=== PATIENT | male | born 1985 | race African-American/Black ===

== ENCOUNTER 2019-07-19 17:26 | Emergency (ER) | payer OTHER, BC ==
[2019-07-19] MEDS ORDERED: MORPHINE SULFATE 10 MG/ML INJ IM ONE (17:47)
--- NOTE | 2019-07-19 17:47 | ER Document Report ---
ED Medical Screen (RME) - General Chief Complaint: Shoulder Injury Stated Complaint: HURT SHOULDER Time Seen by Provider: 07/19/19 17:45 Primary Care Provider: GOLD STANLEY [Primary Care Provider] - Follow up as needed Mode of Arrival: Ambulatory Information source: Patient Notes: Patient is an otherwise healthy 34-year-old male presented emergency department with chief complaint of complaint of right shoulder pain. Patient reports he was reaching up for something at work when he believes he dislocated his shoulder. Patient does have a history of shoulder dislocations in the past. Strong radial pulse present. Patient taken straight to x-ray. I have greeted and performed a rapid initial assessment of this patient. A comprehensive ED assessment and evaluation of the patient, analysis of test results and completion of the medical decision making process will be conducted by additional ED providers. I have specifically instructed the patient or family members with the patient to immediately return to any nursing staff should anything change in the patient's condition or with their chief complaint. This medical record was dictated with voice recognizing software. There may be grammatical, syntax errors that are unintended. - Related Data Allergies/Adverse Reactions: No Known Allergies Allergy (Verified 07/19/19 17:40) Physical Exam - Vital signs Vitals: Temp Pulse Resp BP Pulse Ox 98.4 F 77 18 144/88 H 98 07/19/19 17:42 07/19/19 17:42 07/19/19 17:42 07/19/19 17:42 07/19/19 17:42 Course - Vital Signs Vital signs: Temp Pulse Resp BP Pulse Ox 98.4 F 77 18 144/88 H 98 07/19/19 17:42 07/19/19 17:42 07/19/19 17:42 07/19/19 17:42 07/19/19 17:42 Doctor's Discharge - Discharge Referrals: GOLD STANLEY [Primary Care Provider] - Follow up as needed
[2019-07-19] MEDS ORDERED: PROPOFOL INJ 200 MG/20 ML VIAL IV ONE (18:17)
--- NOTE | 2019-07-19 18:17 | ER Document Report ---
ED General - General Chief Complaint: Shoulder Injury Stated Complaint: HURT SHOULDER Time Seen by Provider: 07/19/19 17:45 Primary Care Provider: MARY IRENE MD [ACTIVE STAFF] - Follow up in 3-5 days (ORTHOPEDICS ) Mode of Arrival: Ambulatory Notes: Patient is a 34-year-old male that presents to the emergency department for chief complaint of right shoulder dislocation. Patient states that he was reaching for something at work and when he pulled back he felt a pop in his shoulder, and he knew immediately that his shoulder had dislocated. This occurred around 1 hour ago. He has had this happen multiple times in the past, but usually can get his shoulder back in place but this time he could not. He currently rates his pain as a 7 out of 10 describes as a constant aching sensation in the right shoulder. Pain is worse with any range of motion. He denies any numbness, tingling or weakness in his hand. Denies any lack of sensation or numbness over his shoulder. He denies any fall or head injury or neck injury. No other complaints at this time. He reports that he last ate around 1 PM today. Past Medical History: Denies any medical problems Past Surgical History: Denies surgical history Social History: Denies tobacco, alcohol or drug use. Family History: Reviewed and noncontributory for presenting illness Allergies: Reviewed, see documented allergy list. REVIEW OF SYSTEMS: Other than noted above, the 12 point review of systems was reviewed with the patient and were negative, all pertinent findings are included in the HPI. PHYSICAL EXAMINATION: Vital signs reviewed, nursing noted reviewed. GENERAL: Patient appears uncomfortable, but in no acute or immediate distress at this time. HEAD: Atraumatic, normocephalic. EYES: Eyes appear normal, extraocular movements intact, sclera anicteric, conjunctiva are normal. ENT: nares patent, oropharynx clear without exudates. Moist mucous membranes. NECK: Normal range of motion, supple without lymphadenopathy LUNGS: Breath sounds clear to auscultation bilaterally and equal. No wheezes rales or rhonchi. HEART: Regular rate and rhythm without murmurs ABDOMEN: Soft, nontender, normoactive bowel sounds. No rebound, guarding, or rigidity. No masses appreciated. EXTREMITIES: The right shoulder is grossly deformed, consistent with anterior dislocation, there is significant pain with any range of motion of the right shoulder, patient is neurovascular intact distally, cap refill less than 3 seconds, radial pulses +2/4, there is intact sensation over the deltoid. The patient's extremity exam is otherwise unremarkable, with good range of motion of the other extremities, and intact distally. NEUROLOGICAL: No focal neurological deficits. Moves all extremities spontaneously Motor and sensory grossly intact on exam. PSYCH: Normal mood, normal affect. SKIN: Warm, Dry, normal turgor, no rashes or lesions noted on exposed skin - Related Data Allergies/Adverse Reactions: No Known Allergies Allergy (Verified 07/19/19 17:40) Past Medical History - General Information source: Patient - Social History Smoking Status: Never Smoker Family History: Reviewed & Not Pertinent Physical Exam - Vital signs Vitals: Temp Pulse Resp BP Pulse Ox 98.4 F 77 18 144/88 H 98 07/19/19 17:42 07/19/19 17:42 07/19/19 17:42 07/19/19 17:42 07/19/19 17:42 Course - Re-evaluation Re-evalutation: Patient seen and examined vital signs reviewed. Imaging ordered as appropriate for the patient's presenting symptoms and complaint, with consideration of any critical or life threatening conditions that may be associated with their obtained history and exam as noted above. Patient was treated with fentanyl 100 mcg prior to procedure Results were reviewed when available and demonstrated anterior shoulder dislocation, this was reduced successfully as described in procedure note, using propofol a total of 50 mg for sedation, patient tolerated procedure well, neurovascular intact post procedure. Because this occurred at work, patient was requesting urine drug screen and alcohol testing, patient did receive fentanyl prior to obtaining urine, which may trigger a positive opiate, occasionally propofol can trigger a positive benzodiazepine as well, will review testing results and discuss with patient. The patient was re-evaluated and was stable, pain was improved and controlled, his urine tox screen and alcohol levels were negative Evaluation was most consistent with right shoulder dislocation Results were discussed with the patient at this point, after careful consideration I feel that that patient can be discharged from the emergency department, the patient was educated treatments and reasons to return to the emergency department based on their presumed diagnosis as noted above, they were advised to followup with a primary care physician in 2-3 days. Patient was agreeable to plan of care. *Note is created using voice recognition software and may contain spelling, syntax or grammatical errors. Laboratory 07/19/19 07/19/19 19:58 20:05 Urine Opiates Screen NEGATIVE Urine Methadone Screen NEGATIVE Ur Barbiturates Screen NEGATIVE Ur Phencyclidine Scrn NEGATIVE Ur Amphetamines Screen NEGATIVE U Benzodiazepines Scrn NEGATIVE Urine Cocaine Screen NEGATIVE U Marijuana (THC) Screen NEGATIVE Serum Alcohol < 10 Shoulder X-Ray 07/19/19 18:46 IMPRESSION: Successful reduction of anterior dislocation. - Vital Signs Vital signs: Temp Pulse Resp BP Pulse Ox 98.2 F 88 19 143/85 H 100 07/19/19 20:32 07/19/19 20:32 07/19/19 20:32 07/19/19 20:32 07/19/19 20:32 Procedures - Conscious Sedation Conscious sedation Time started: 18:48 Consent obtained: Yes Indication: RIGHT SHOULDER DISLOCATION Last meal: 1300 Prior complications: Procedural sedation Normal healthy pt.: P1. - ASA Classification Airway Evaluation: Normal anatomy Mallampati Classification: Class 1 Used during procedure: Suction available, IV access obtained, Pulse ox on pt., traffic monitor specialist on pt. Medications administered: Diprivan - 50MG Reversal agents: None I personally performed/intraservice time: Sedation, Procedure, 30 min or less Complications: No - Joint Reduction/Fracture Care Right Shoulder Consent obtained: Yes Conscious sedation: Yes Pre-procedure NV exam: Yes Post-procedure NV exam: Yes Post-reduction x-ray: Joint reduced Reduction attempts: 1 Complications: No Notes: After consents obtained, timeout called, patient was sedated using 50 mg of IV propofol, moderate sedation was obtained, and using external rotation and slight traction countertraction technique, the patient's shoulder was successfully reduced and placed in a shoulder immobilizer. Patient had post reduction x-rays obtained, the demonstrated a shoulder reduced successfully, patient was neurovascular intact afterwards, monitored after sedation, and did quite well. His pain was controlled after reduction as well. Discharge - Discharge Clinical Impression: Dislocation of right shoulder joint Qualifiers: Encounter type: initial encounter Qualified Code(s): S43.004A - Unspecified dislocation of right shoulder joint, initial encounter Condition: Stable Disposition: HOME, SELF-CARE Instructions: Shoulder Dislocation ([facility]) Additional Instructions: Please wear the shoulder immobilizer for at least a week, he can take it off for bathing, keep her hand across her chest to minimize risk of re-dislocation. Please follow-up with orthopedic surgery as you may need to surgery to prevent redislocation in the future. Referrals: MARY IRENE MD [ACTIVE STAFF] - Follow up in 3-5 days (ORTHOPEDICS )
[2019-07-19] MEDS ORDERED: FENTANYL CITRATE INJ/PF 100 MCG/2 ML AMPUL IV ONE (18:18)
[2019-07-19] MEDS ORDERED: NORMAL SALINE 500 ML IV ONE (18:18)
--- NOTE | 2019-07-19 18:50 | RADIOLOGY REPORT (SQ) ---
EXAM DESCRIPTION: SHOULDER RIGHT 2 OR MORE VIEWS COMPLETED DATE/TIME: 07/19/2019 5:54 pm REASON FOR STUDY: dislocation COMPARISON: None. NUMBER OF VIEWS: Two views. TECHNIQUE: Frontal and lateral images acquired of the right shoulder. LIMITATIONS: None. FINDINGS: MINERALIZATION: Normal. BONES: No acute fracture. No worrisome bone lesions. JOINTS: Anterior dislocation. VISUALIZED LUNGS AND RIBS: No pneumothorax. No rib fracture. SOFT TISSUES: No radiopaque foreign body. OTHER: No other significant finding. IMPRESSION: Anterior dislocation of the shoulder. TECHNICAL DOCUMENTATION: JOB ID: [id number] [employer]- All Rights Reserved Reading location - IP/workstation name: [email or web address]
--- NOTE | 2019-07-19 19:47 | RADIOLOGY REPORT (SQ) ---
EXAM DESCRIPTION: SHOULDER RIGHT 2 OR MORE VIEWS COMPLETED DATE/TIME: 07/19/2019 7:18 pm REASON FOR STUDY: post reduction COMPARISON: Earlier the same day. NUMBER OF VIEWS: Two views. TECHNIQUE: Frontal and lateral images acquired of the right shoulder. LIMITATIONS: None. FINDINGS: MINERALIZATION: Normal. BONES: No acute fracture. No worrisome bone lesions. JOINTS: No dislocation. VISUALIZED LUNGS AND RIBS: No pneumothorax. No rib fracture. SOFT TISSUES: No radiopaque foreign body. OTHER: No other significant finding. IMPRESSION: Successful reduction of anterior dislocation. TECHNICAL DOCUMENTATION: JOB ID: [id number] [employer]- All Rights Reserved Reading location - IP/workstation name: [email or web address]
[2019-07-19 20:33] VITALS: BP 143/85
[2019-07-19 20:41] LABS: URINE AMPHETAMINES SCREEN NEGATIVE; URINE BARBITURATES SCREEN NEGATIVE; URINE BENZODIAZEPINES SCREEN NEGATIVE; URINE COCAINE SCREEN NEGATIVE; URINE MARIJUANA (THC) SCREEN NEGATIVE; URINE METHADONE SCREEN NEGATIVE; URINE PHENCYCLIDINE SCREEN NEGATIVE
== END 2019-07-19 20:25 | disposition home or self-care (01) ==
LOC: ER 17:26
DX: S43.004A Unspecified dislocation of right shoulder joint, initial encounter (principal); X58.XXXA Exposure to other specified factors, initial encounter; Y99.0 Civilian activity done for income or pay
CPT/HCPCS: 36415; 80307 ×2; 73030; 23650; L3650; J3010; J7040; J2704; 96361; 96374; 99283; 99152